=== PATIENT | male | born 1955 | race Caucasian/White ===

== ENCOUNTER 2021-06-30 14:07 | Emergency (ER) | payer BC ==
[~2021-06-30] VITALS: Ht 180.3 cm; Wt 65.5 kg
[~2021-06-30 14:07] MED LIST: CARV6.252 PO; INDLA80C PO; SPIR25TA5 PO
[2021-06-30 14:45] VITALS: BP 131/61
[2021-06-30] MEDS ORDERED: diatrozoate meglu/diatrozoate sod (37% iodine) 120ML oral solution PO ONE (17:15)
[2021-06-30] MEDS ORDERED: diatr meglu/diatrizoate 30ml oral sol.-(3 dose) bottle PO ONE (17:30)
[2021-06-30] MEDS ORDERED: CEPH-585 PO ×2 (18:05)
[2021-06-30] MEDS ORDERED: KEF125L PO (18:09)
== END 2021-06-30 19:01 | disposition home or self-care (01) ==
LOC: ER 14:08
DX: L03.311 Cellulitis of abdominal wall (principal); I10 Essential (primary) hypertension; Z88.1 Allergy status to other antibiotic agents; Z79.2 Long term (current) use of antibiotics; Z79.899 Other long term (current) drug therapy
CPT/HCPCS: 74018; 99283

== ENCOUNTER → 2021-08-16 | Outpatient (CLI) | payer MEDICARE | END | disposition home or self-care (01) | LOC: RAD 14:21 | PROVIDERS: ATTEND Family Medicine | DX: C02.9 Malignant neoplasm of tongue, unspecified (principal); R13.12 Dysphagia, oropharyngeal phase | CPT/HCPCS: 74230 ==